=== PATIENT | male | born 1965 | race Two or more races ===

== ENCOUNTER 2024-12-14 13:25 | Emergency (ER) | payer MEDICAID, SELFPAY ==
--- NOTE | 2024-12-14 13:42 | XR_ITS ---
Examination: Abdomen sonogram, Limited Date and time of exam: December 14, 2024, 1413 hrs. Indications: Left groin cramping 7 months Technique: Real-time esqueda scale transabdominal sonographic images of the upper abdomen obtained. Findings: No cystic or solid mass no hernia defect at the area concern Impression: No hernia defect noted Consider CT scan pelvis without contrast follow-up
--- NOTE | 2024-12-14 13:42 | PD.EDADULT ---
ED General RME/HPI General Chief complaint: General Adult/Misc Complain Stated complaint: LEFT GROIN PAIN Time Seen by Provider: 12/14/24 13:29 Arrival date/time: 12/14/24 13:25 CC: Left inguinal crease pain HPI ongoing for the past 7 minutes intermittent in nature only when the patient rotates his body in a certain position or lifts in the patient gets a stabbing sharp pain that lasts for less than a second otherwise there is no pain denies any painful urination bloody urination nausea vomiting headache shortness of breath or difficulty breathing. Was referred to the emergency room from PCP at [facility] for further workup. Patient is afebrile nontoxic-appearing not in any acute distress. Related Data Home Medications ?Medication ?Instructions ?Recorded ?Confirmed simvastatin 40 mg tablet 1 tab PO HS 04/13/22 04/13/22 Previous Rx's ?Medication ?Instructions ?Recorded ibuprofen 800 mg tablet 800 mg PO TID PRN pain #30 tabs 06/12/21 Held on 04/14/22. Instructions: Resume on 05/19/22. acetaminophen 500 mg tablet 1,000 mg (2 x 500 mg) PO Q6H #90 04/14/22 (Tylenol Extra Strength) tabs meloxicam 7.5 mg tablet 7.5 mg PO QDAY #30 tabs 04/14/22 oxycodone 5 mg tablet 5 mg PO Q6H PRN pain #42 tabs 04/14/22 pregabalin 75 mg capsule (Lyrica) 75 mg PO QDAY #30 caps 04/14/22 Allergies Allergy/AdvReac Type Severity Reaction Status Date / Time No Known Allergies Allergy Verified 04/14/22 12:56 Review of Systems Review of Systems Narrative Review of Systems: GEN: No fever, no chills, no weight loss EYES: No discharge, no visual changes, no pain HEENT: No ear pain, no congestion, no sore throat PULM: No shortness of breath, no cough, no congestion CV: No chest pain, no dyspnea on exertion, no palpitations GI: No nausea, no vomiting, no diarrhea, no pain, no constipation : No frequency, no urgency, no dysuria MUSC/SKEL: No joint pain, no back pain SKIN: No rash PSYCH: No hallucinations, no depression HEME/LYMPH: No easy bleeding or bruising tendencies NEURO: No weakness, no headache Past Medical History Past Medical History NEUROLOGIC: Negative Neurological Disorders, Cerebrovascular Accident, Seizures or Epilepsy CARDIAC: Positive Cardiac Disorders and Hypercholesterolemia (TAKES PO MEDICATION); Negative Myocardial Infarction, Cardiac Arrhythmia, Heart Murmur, Congestive Heart Failure, Edema or Hypertension RESPIRATORY: Negative Chronic Obstructive Pulmonary Disease (COPD), Asthma, Bronchitis or Pneumonia GASTROINTESTINAL: Negative Gastrointestinal Disorders or Obesity GENITOURINARY: Negative Genitourinary Disorders or Renal Disease MUSCULOSKELETAL: Negative Musculoskeletal Disorders or Arthritis ENDOCRINE: Negative Endocrine Disorders, Diabetes Mellitus Type 1 or Diabetes Mellitus Type 2 HEMATOLOGIC: Negative Blood Disorders or Anemia PSYCHO/SOCIAL: Negative Depression, Anxiety or Post Traumatic Stress Disorder OTHER HISTORY: Negative Hospitalization, Autoimmune Disease, Shingles, Falls, Blood Transfusions, Blood Transfusion Reaction, Anesthesia Reactions, MRSA, Chicken Pox, Measles, Mumps or Cancer Family History FAMILY HISTORY: Positive Family Respiratory Disorders (MOTHER PASSED D/T RESPIRATORY ISSUES), Family Cardiac Disorders (MOTHER (HTN)) and Family Cancer (BROTHER (KIDNEY CANCER)); Negative Family Psychiatric Problems, Family Gastrointestinal Problems, Family Surgery or Family Anesthesia Reaction Surgical History SURGICAL: Negative Endocrine Surgery, Ear Surgery, Abdominal Surgery, Nephrectomy or Joint Replacement Social History SMOKING STATUS: Never smoker ED Exam Narrative Physical exam: [General: Not in any acute distress Head normocephalic HEENT: Within acceptable limits Neck is supple nontender Chest equal chest rise nontender to palpation Respiratory: Clear to auscultation no wheezes crackles or rubs CV: Rate rhythm is regular no murmurs rubs or clicks Abdomen is distended secondary to body habitus soft nontender no masses positive bowel sounds all 4 quadrants, no pain bulging or masses appreciated with palpation of the inguinal crease region patient has a distended abdomen but no pannus. No erythema no edema no open lesions induration or ulcerations. Back: No CVA tenderness no spinous process tenderness from cervical spine thoracic and lumbar spine Skin: Intact no petechiae rash induration ulceration or crepitus Extremities: Moving all extremity against resistance cap refill less than 2 seconds neurosensory intact Neuro: Awake alert oriented x3 Glascow coma 15 no focal deficits] Course Quality Measures none Orders Category Date Time Status US abdomen limited Stat Exams 12/14/24 13:42 Completed [facility] Patient data External records reviewed:: [facility] previous records Clinical information provided by:: patient Social determinants that could affect healthcare access:: none Patient has the following chronic illnesses:: None How is presenting disease/condition affected by chronic disease/condition?: uneffected by Evaluation data The following diagnostics were reviewed and interpreted by me:: radiology exam(s) Lab and/or radiology exams considered but not ordered:: Ultrasound shows no evidence of a hernia, Interpretation Summary: Left groin pain patient has no other complaints there is no significant physical finding, ultrasound is negative at this time patient be discharged home with right groin pain if there is worsening of symptoms he can return the emergency room for reevaluation. Medications Medications considered but not ordered:: None Medication administrations:: None Consultations Consultation(s) initiated? (list below): No Diagnosis Differential Diagnosis ED Complaint MDM: Incarcerated hernia, new hernia, ventral hernia Most likely diagnosis given after review of the tests above:: Left inguinal groin pain Admission Indicated Admission indicated?: not indicated Explain why admission is indicated or not indicated:: Stable for discharge Admission Request Was there a request for admission?: No Disposition Plan Disposition Plan: Discharge Discharge Attestation Discharge Attestation: The patient and all family members were given an opportunity to ask questions and understood the discharge instructions. Discharge instructions specifically effects, indications for sooner follow up or return to the emergency department, and the expected course of current diagnosis. Patient condition: Stable Medical Decision Making Differential Diagnosis Differential Diagnosis: Incarcerated hernia, new hernia, ventral hernia Discharge Plan Plan Patient Disposition: HOME (Self Care) Patient condition on transfer: Stable Prescriptions/Referrals Prescriptions/Med Rec: No Action ibuprofen 800 mg tablet 800 mg PO TID PRN (Reason: pain) Qty: 30 0RF simvastatin 40 mg tablet 1 tab PO HS Patient Comments: TAKE ONE TABLET BY MOUTH AT BEDTIME FOR CHOLESTEROL oxycodone 5 mg tablet 5 mg PO Q6H MDD 8 PRN (Reason: pain) Qty: 42 0RF Rx Instructions: take 1 tablet for mild to moderate pain and 2 for severe pain meloxicam 7.5 mg tablet 7.5 mg PO QDAY Qty: 30 1RF acetaminophen [Tylenol Extra Strength] 500 mg tablet 1,000 mg PO Q6H Qty: 90 0RF pregabalin [Lyrica] 75 mg capsule 75 mg PO QDAY Qty: 30 0RF Referrals: Genet Ibanez MD [Primary Care Provider] - In 1 week Problem List Clinical Impression: Inguinal pain Patient/Caregiver Discharge Instructions Other Activity Instructions:: Follow-up with your primary care provider there is no evidence of a hernia in this area. If there is a worsening of symptoms return to the emergency room for reevaluation. Ibuprofen or Tylenol can be used for pain. Print Language: Niuean Stand Alone Forms: Rosemarie Award Info., Work/School Release, Patient Portal Info Letter PA/NADIR Supervising Physician PA/POLICE RESERVES COMMANDER Supervising Physician: Stuart Prieto ENP
== END 2024-12-14 16:39 | disposition home or self-care (01) ==
PROVIDERS: Emergency Provider Emergency Medicine; PCP Family Medicine
DX: R10.32 Left lower quadrant pain (principal)
CPT/HCPCS: 76705; 99284

== ENCOUNTER 2025-02-08 01:31 | Emergency (ER) | payer MEDICAID, SELFPAY ==
[2025-02-08 01:41] VITALS: BMI 35.4
[2025-02-08 02:06] VITALS: BP 126/75; PULSE 60; RESP 18; TEMP 36.5; O2SAT 98
--- NOTE | 2025-02-08 02:18 | PD.EDRME ---
Rapid Medical Screening Exam RME Arrival date/time: 02/08/25 01:31 59-year-old male presents to the ED with a complaint of right flank pain that began 3 days ago and not let him sleep. Chief Complaint: Back Pain/Injury Vital signs: Vital Signs Temperature 97.7 F 02/08/25 02:06 Pulse Rate 60 02/08/25 02:06 Respiratory Rate 18 02/08/25 02:06 Blood Pressure 126/75 02/08/25 02:06 Pulse Oximetry (%) 98 02/08/25 02:06 Oxygen Delivery Method Room Air 02/08/25 02:06 Pulse ox room air 98%
--- NOTE | 2025-02-08 02:19 | XR_ITS ---
Examination: CT abdomen and pelvis without contrast. Coronal 3-D reconstructions. Sagittal 2-D reconstructions. Date and time of exam:February 08, 2025 0248 hours INDICATIONS: Onset right-sided flank pain beginning 2 days ago CTDI: vol (mGy): 8.47 DLP: (mGycm): 508 Technique: Axial images of the abdomen have been obtained, 3 mm slice thickness Intravenous contrast material has not been administered. Low dose protocols were performed. One or more of the following dose reduction techniques were used; automated exposure control, adjustment of the mA and/or KV according to patient size, use of iterative reconstruction technique. Findings: No focal liver or splenic lesions Cholelithiasis No pancreatic mass No renal or ureteral calculi, no hydronephrosis Aorta normal size No bowel obstruction Normal appendix Thickening of urinary bladder wall up to 8 mm IMPRESSION: Cholelithiasis Cystitis pattern
[2025-02-08] MEDS: KETOROLAC INJ 60 MG/2 ML VIAL 30 MG IM (02:40)
[2025-02-08 02:43] LABS: Collection Type, Urine Clean Catch; RBC,Urine 0 /hpf (0-3); WBC,Urine 0 /hpf (0-5)
[2025-02-08 02:48] LABS: Basophils % (Auto) 0 % (0-2.5); Eosinophils % (Auto) 1 % (0-10); Hematocrit 40.6 % (41.0-53.0); Hemoglobin 14.4 g/dL (13.5-16.0); Immature Granulocytes % (Auto) 0 % (0-0); Immature Granulocytes Auto 0.01 Thou/mm3 (0.00-0.00); Lymphocytes # (Auto) 3.3 Thou/mm3 (1.0-4.8); Lymphocytes % (Auto) 50 % (10-50); Mean Corpuscular HGB Conc 35.5 g/dl (31.0-37.0); Mean Corpuscular Hemoglobin 31.5 pg (25.0-35.0); Mean Corpuscular Volume 89 fL (80-100); Monocytes # (Auto) 0.4 Thou/mm3 (0.0-0.8); Monocytes % (Auto) 7 % (0-12); Neutrophils # (Auto) 2.8 Thou/mm3 (1.8-7.7); Neutrophils % (Auto) 42 % (37-80); Nucleated Red Blood Cell % 0 /100 WBC (0); Platelet Count 276 Thou/mm3 (140-440); RDW Standard Deviation 44.5 fL (35.1-43.9); Red Blood Count 4.57 Miln/mm3 (4.50-5.90); White Blood Count 6.6 Thou/mm3 (3.8-10.6)
[2025-02-08 03:00] LABS: Bilirubin,Urine Negative (Negative); Blood,Urine Negative (Negative); Clarity,Urine Clear (Clear/Hazy); Color,Urine Lt-Yellow (Lt Yel-Yel); Culture Indicated,Urine Not Indicated; Glucose, Urine Negative (Negative); Ketones,Urine Negative (Negative); Leukocyte Esterase,Urine Negative (Negative); Nitrite,Urine Negative (Negative); PH,Urine 6.5 (5.0-7.0); Protein,Urine Negative (Neg - Trace); Specific Gravity,Urine 1.019 (1.001-1.035); Squamous Epithelial Cell,Urine < 1 /hpf (0-5); Urobilinogen,Urine Negative mg/dL (0.0-1.0)
[2025-02-08 03:15] LABS: Alanine Aminotransferase 63 U/L (10-49); Albumin, Serum 4.3 gm/dL (3.5-5.0); Alkaline Phosphatase 100 U/L (46-116); Anion Gap 8 (7-16); Aspartate Amino Transferase 42 U/L (0-34); BUN/Creatinine Ratio 19 Ratio (12-20); Blood Urea Nitrogen 17 mg/dL (9-23); Calcium 8.7 mg/dL (8.3-10.6); Calcium (Corrected) 8.7 mg/dL (8.5-10.1); Carbon Dioxide 25.3 mMol/L (20.0-31.0); Chloride 108 mMol/L (98-107); Creatinine (Component) 0.9 mg/dL (0.6-1.3); Estimated Creatinine Clearance 83.9 mL/min (>60); Glucose 96 mg/dL (74-106); Lipase 41 U/L (12-53); Osmolality,Calculated 282 (275-295); Potassium 3.8 mMol/L (3.4-5.1); Sodium 141 mMol/L (136-145); eGFR > 60 See Note
[2025-02-08 03:16] LABS: Albumin/Globulin Ratio 1.7 (1.2-2.2); Bilirubin,Total 0.8 mg/dL (0.3-1.2); Globulin 2.5 gm/dL (2.3-3.5); Total Protein 6.8 gm/dL (5.7-8.2)
--- NOTE | 2025-02-08 04:06 | EDNOTE_ITS ---
ED Back Injury Pain RME/HPI General Chief Complaint: Back Pain/Injury Stated Complaint: R FLANK PAIN Arrival date/time: 02/08/25 01:31 RME / HPI RME / HPI Narrative: 02/08/25 01:31 59-year-old male presents to the ED with a complaint of right flank pain that began 3 days ago and not let him sleep. Dr. Alcaraz?s Main ED Evaluation: 59yo male with a history of HLD presents to the ED for a chief complaint of right mid abdominal pain x 3 days. Patient states his pain radiates to his back, reporting it got significantly worse tonight and he was unable to sleep, so he came in for evaluation. Patient denies any N/V/D, fever, chills, dysuria, chest pain, shortness of breath or any other associated symptoms. NKA. Patient states his pain has resolved since arriving to the ED. Related Data Home Medications ?Medication ?Instructions ?Recorded ?Confirmed simvastatin 40 mg tablet 1 tab PO HS 04/13/22 2 Previous Rx's ?Medication ?Instructions ?Recorded ibuprofen 800 mg tablet 800 mg PO TID PRN pain #30 t abs 06/12/21 Held on 04/14/22. Instructions: Resume on 05/19/22. acetaminophen 500 mg tablet 1,000 mg (2 x 500 mg) PO Q 6H #90 04/14/22 (Tylenol Extra Strength) tabs meloxicam 7.5 mg tablet 7.5 mg PO QDAY #30 tabs 04/02 12/22 oxycodone 5 mg tablet 5 mg PO Q6H PRN pain #42 tab s 04/14/22 pregabalin 75 mg capsule (Lyrica) 75 mg PO QDAY #30 ca ps 04/14/22 ibuprofen 600 mg tablet 600 mg PO Q8H PRN pain #14 t abs 02/08/25 Allergies Allergy/AdvReac Type Severity Reaction Status Date / Time No Known Allergies Allergy Verified 04/14/22 12:56 Review of Systems Review of Systems Systems Reviewed: All systems reviewed, normal except as documented Past Medical History Past Medical History NEUROLOGIC: Negative Neurological Disorders, Cerebrovascular Accident, Seizures or Epilepsy CARDIAC: Positive Cardiac Disorders and Hypercholesterolemia (TAKES PO MEDICATION); Negative Myocardial Infarction, Cardiac Arrhythmia, Heart Murmur, Congestive Heart Failure, Edema or Hypertension RESPIRATORY: Negative Chronic Obstructive Pulmonary Disease (COPD), Asthma, Bronchitis or Pneumonia GASTROINTESTINAL: Negative Gastrointestinal Disorders or Obesity GENITOURINARY: Negative Genitourinary Disorders or Renal Disease MUSCULOSKELETAL: Negative Musculoskeletal Disorders or Arthritis ENDOCRINE: Negative Endocrine Disorders, Diabetes Mellitus Type 1 or Diabetes Mellitus Type 2 HEMATOLOGIC: Negative Blood Disorders or Anemia PSYCHO/SOCIAL: Negative Depression, Anxiety or Post Traumatic Stress Disorder OTHER HISTORY: Negative Hospitalization, Autoimmune Disease, Shingles, Falls, Blood Transfusions, Blood Transfusion Reaction, Anesthesia Reactions, MRSA, Chicken Pox, Measles, Mumps or Cancer Family History FAMILY HISTORY: Positive Family Respiratory Disorders (MOTHER PASSED D/T RESPIRATORY ISSUES), Family Cardiac Disorders (MOTHER (HTN)) and Family Cancer (BROTHER (KIDNEY CANCER)); Negative Family Psychiatric Problems, Family Gastrointestinal Problems, Family Surgery or Family Anesthesia Reaction Surgical History SURGICAL: Negative Endocrine Surgery, Ear Surgery, Abdominal Surgery, Nephrectomy or Joint Replacement Social History SMOKING STATUS: Never smoker ED Exam Narrative Physical exam: GENERAL APPEARANCE: AxOx4, generally well-appearing, no acute distress. HEENT: NC, AT. MMM. EOMI, clear conjunctiva, oropharynx clear. NECK: Supple without lymphadenopathy. No stiffness or restricted ROM. HEART: Normal rate and regular rhythm, normal S1/S1, no m/r/g LUNGS: CTAB, moving air well. No crackles or wheezes are heard. ABDOMEN: Soft, nontender, nondistended with good bowel sounds heard. BACK: No midline C/T/L spine pain or deformity, No CVAT, no obvious deformity. EXTREMITIES: Without cyanosis, clubbing or edema. MUSCULOSKELETAL: FROM of all major joints, no chest tenderness NEUROLOGICAL: Grossly nonfocal. Alert and oriented, moving all 4 extremities. CN not formally tested but appear grossly intact. Observed to ambulate with normal gait. Skin: Warm and dry without any rash. Course Quality Measures none Orders Category Date Time Status CT abdomen pelvis wo con Stat Exams 02/08/25 02:19 Taken CBC Stat Lab 02/08/25 02:31 Completed Comprehensive Metabolic Panel Stat Lab 02/08/25 02:31 Completed Lipase Stat Lab 02/08/25 02:31 Completed Urinalysis Stat Lab 02/08/25 02:04 Completed Urinalysis, C/S if Indicated Stat Lab 02/08/25 02:04 Completed Ketorolac Inj [Toradol Inj] Med 02/08/25 02:19 Discontinued 30 mg IM X1 ONE Vital Signs Vital signs: Vital Signs Temperature 97.7 F 02/08/25 02:06 Pulse Rate 60 02/08/25 02:06 Respiratory Rate 18 02/08/25 02:06 Blood Pressure 126/75 02/08/25 02:06 Pulse Oximetry (%) 98 02/08/25 02:06 Oxygen Delivery Method Room Air 02/08/25 02:06 Back Pain / Injury MDM Narrative MDM Narrative:: Scribe Attestation: 02/08/25 - Sara Triplett am scribing for and in the presence of Dr. Alcaraz. Patient data External records reviewed:: [facility] previous records (Per chart review, patient was seen here on 12/14/24 for inguinal pain.) Clinical information provided by:: patient Social determinants that could affect healthcare access:: none Patient has the following chronic illnesses:: HLD How is presenting disease/condition affected by chronic disease/condition?: uneffected by Evaluation data The following diagnostics were reviewed and interpreted by me:: lab results and radiology exam(s) Lab and/or radiology exams considered but not ordered:: none Interpretation Summary: CBC is normal, CMP is normal, Lipase is normal, UA is unremarkable. Telerad Preliminary Report Draft Patient: YOLANDA GOFF [facility]. Record#: [id number] Birthdate: 1965 Age/Sex: 59 / M Location: [facility] Attending Dr: Ordering Physician: Date of Service: Procedure(s): Accession Number(s): cc: ~ CT scan of the abdomen and pelvis without intravenous contrast (axial sections with sagittal and coronal reformats) February 08, 2025 at 0248 hours Clinical History: Right flank pain. Comparison: No prior study is available for comparison. Findings: Clear lung bases. A 5 cm right pericardial cyst. Cholelithiasis.The liver, spleen, adrenal glands, pancreas and kidneys are unremarkable. The appendix is normal, best seen on image 168. The urinary bladder is decompressed, limiting evaluation. Possible urinary bladder wall thickening. Trace free fluid in pelvis. No free intraperitoneal air. Bowel caliber is normal. No acute osseous process. No urinary tract stone or obstruction is identified. Impression: Possible cystitis. No urinary tract stone or obstruction is identified. Cholelithiasis. Consider ultrasound if clinically indicated. Trace pathologic free fluid. Consider repeat scan with intravenous contrast if clinically indicated. Report Electronically Signed By: Mikhail Fuentes 02/08/2025 4:05:06 AM Medications / Prescriptions Medications or Prescriptions considered but not ordered:: none Medication administrations:: Medication Administration History Discontinued Medications Ketorolac Tromethamine (Ketorolac Inj 60 Mg/2 Ml Vial) 30 mg IM X1 ONE Stop: 02/08/25 02:20 Last Admin: 02/08/25 02:40 Dose: 30 mg Documented By: PAMELA see above Consultations Consultation(s) initiated? (list below): No Diagnosis Differential diagnosis back pain/injury: renal colic, pyelonephritis and other (lumbar strain, appendicitis, acute cholecystitis, cholelithiasis) Most likely diagnosis given after review of the tests above:: see clinical impression below Admission Indicated Admission indicated?: not indicated Admission Request Was there a request for admission?: No Disposition Plan Disposition Plan: Discharge Discharge Attestation Discharge Attestation: The patient and all family members were given an opportunity to ask questions and understood the discharge instructions. Discharge instructions specifically effects, indications for sooner follow up or return to the emergency department, and the expected course of current diagnosis. Patient condition: Stable Discharge Plan Plan Patient Disposition: HOME (Self Care) Prescriptions/Referrals Prescriptions/Med Rec: New ibuprofen 600 mg tablet 600 mg PO Q8H PRN (Reason: pain) Qty: 14 0RF No Action ibuprofen 800 mg tablet 800 mg PO TID PRN (Reason: pain) Qty: 30 0RF simvastatin 40 mg tablet 1 tab PO HS Patient Comments: TAKE ONE TABLET BY MOUTH AT BEDTIME FOR CHOLESTEROL oxycodone 5 mg tablet 5 mg PO Q6H MDD 8 PRN (Reason: pain) Qty: 42 0RF Rx Instructions: take 1 tablet for mild to moderate pain and 2 for severe pain meloxicam 7.5 mg tablet 7.5 mg PO QDAY Qty: 30 1RF acetaminophen [Tylenol Extra Strength] 500 mg tablet 1,000 mg PO Q6H Qty: 90 0RF pregabalin [Lyrica] 75 mg capsule 75 mg PO QDAY Qty: 30 0RF Referrals: Rubi Smith NP [Primary Care Provider] - In 1 week Problem List Clinical Impression: Strain of lumbar region Patient/Caregiver Discharge Instructions Education Materials: ED Back Sprain/Strain Additional Instructions: Acuda a fernanedz m?dico de cabecera en 2 o 3 d?as para pavithra nueva evaluaci?n. Puede regresar a urgencias antes si los s?ntomas empeoran o si nota alg?n problema nuevo que le preocupe. Print Language: Serbian Stand Alone Forms: Rosemarie Award Info., Patient Portal Info Letter
== END 2025-02-08 04:15 | disposition home or self-care (01) ==
PROVIDERS: Physician Assistant; Emergency Provider Emergency Medicine; PCP Nurse Practitioner Family
DX: S39.012A Strain of muscle, fascia and tendon of lower back, initial encounter (principal); X58.XXXA Exposure to other specified factors, initial encounter; R10.9 Unspecified abdominal pain; E78.5 Hyperlipidemia, unspecified
CPT/HCPCS: 36415; 74176; 80053; 81001; 83690; 85025; 96372; 99284; J1885